=== PATIENT | male | born 1975 | race Two or more races ===

== ENCOUNTER → 2024-10-12 | Outpatient (CLI) | payer MEDICAID, SELFPAY ==
--- NOTE | 2024-10-12 09:00 | XR_ITS ---
Examination: Esophagram standard Fluoroscopy Upright PA chest single view Soft tissue lateral neck single view 13 spot fluoroscopic films of the esophagus Exam date and time: October 12, 2024 0956 hours INDICATIONS: Coughing difficulty swallowing beginning 2 years ago. Technique an findings: Upright PA chest demonstrates normal heart size and clear lungs Soft tissue lateral neck demonstrates no prevertebral soft tissue prominence Patient swallowed thin barium with 13 spot films of the esophagus obtained Primary peristaltic esophageal waves noted No esophageal constricting lesion Mild intermittent gastroesophageal reflux. There is no stricture at the gastroesophageal junction Fluoroscopy 0.17 minute 13 spot fluoroscopic films IMPRESSION: Mild intermittent gastroesophageal reflux There is no stricture at the gastroesophageal junction
== END | disposition home or self-care (01) ==
LOC: CDIM 08:37
PROVIDERS: Referring Provider Nurse Practitioner Family; Visit Provider Nurse Practitioner Family
DX: K21.9 Gastro-esophageal reflux disease without esophagitis (principal)
CPT/HCPCS: 74220; A4699